=== PATIENT | female | born 1970 | race Caucasian/White ===

== ENCOUNTER → 2017-01-05 16:47 | Outpatient (CLI) | payer MEDICARE | END | disposition home or self-care (01) | LOC: D.LABREF 16:47 | DX: R35.0 Frequency of micturition (principal) ==

== ENCOUNTER → 2017-03-29 19:20 | Outpatient (CLI) | payer MEDICARE | END | disposition home or self-care (01) | LOC: D.LABREF 19:20 | DX: J02.9 Acute pharyngitis, unspecified (principal) ==

== ENCOUNTER → 2017-06-06 19:14 | Outpatient (CLI) | payer MEDICARE | END | disposition home or self-care (01) | LOC: D.LABREF 19:14 | DX: R30.0 Dysuria (principal) ==

== ENCOUNTER → 2017-07-25 17:09 | Outpatient (CLI) | payer MEDICARE | END | disposition home or self-care (01) | LOC: D.MAMMO 07-24 08:30 | DX: Z12.31 Encounter for screening mammogram for malignant neoplasm of breast (principal) ==

== ENCOUNTER → 2017-08-14 18:47 | Outpatient (CLI) | payer MEDICARE ==
[2017-08-14 19:15] LABS: APTT 32.2 SECONDS (22.8-39.4); INR 0.95 (0.85-1.17); PROTIME 12.5 SECONDS (11.6-15.0)
== END | disposition home or self-care (01) ==
LOC: D.LABREF 18:47
PROVIDERS: Family Medicine
DX: Z01.818 Encounter for other preprocedural examination (principal)